=== PATIENT | male | born 1955 | race Asian ===

== ENCOUNTER 2019-06-27 13:47 | Outpatient (CLI) | payer BC | END 2019-06-27 20:38 | disposition home or self-care (01) | LOC: LAB 13:47 | DX: K64.0 First degree hemorrhoids (principal) | CPT/HCPCS: 82272 ==

== ENCOUNTER 2021-03-03 09:24 | Outpatient (CLI) | payer BC | END 2021-03-03 19:40 | disposition home or self-care (01) | LOC: CT 09:24 | PROVIDERS: ATTEND Internal Medicine | DX: R10.84 Generalized abdominal pain (principal); R19.09 Other intra-abdominal and pelvic swelling, mass and lump; R10.13 Epigastric pain | CPT/HCPCS: Q9963 ==